=== PATIENT | female | born 1980 | race Hispanic/Latino ===

== ENCOUNTER 2022-05-23 19:17 | Emergency (ER) | payer MEDICAID ==
[~2022-05-23] VITALS: Ht 157.5 cm; Wt 73.5 kg
[2022-05-23] MEDS ORDERED: ONDANSETRON 4MG INJ IVP ONE (19:30)
[2022-05-23] MEDS ORDERED: KETOROLAC 30MG VIAL (30MG/ML) IVP ONE (19:30)
[2022-05-23] MEDS ORDERED: ONDANSETRON 4MG INJ ONE (19:35)
[2022-05-23] MEDS ORDERED: KETOROLAC 30MG VIAL (30MG/ML) ONE (19:36)
[2022-05-23 19:41] LABS: BASOPHILS % (AUTO) 0.4 % (0.0-5.0); EOSINOPHILS % (AUTO) 1.4 % (0.0-8.0); HEMATOCRIT 36.9 % (36-48); LYMPHOCYTES % (AUTO) 33.4 % (21.0-51.0); MEAN CORPUSCULAR HGB CONC 35.2 g/dL (32.0-36.0); MEAN CORPUSCULAR VOLUME 87.9 fL (79-99); MONOCYTES % (AUTO) 9.1 % (3.0-13.0); NEUTROPHILS % (AUTO) 55.4 % (40.0-77.0); PLATELET COUNT (AUTO) 349 K/uL (130-400); RED CELL DISTRIBUTION WIDTH 12.4 % (11.0-15.5)
[2022-05-23 19:45] LABS: APPEARANCE,URINE CLOUDY (CLEAR); BILIRUBIN,URINE NEGATIVE (NEGATIVE); COLOR,URINE YELLOW (YELLOW); GLUCOSE, URINE (UA) NEGATIVE (NEGATIVE); KETONES,URINE 5 mg/dL (NEGATIVE); LEUKOCYTE ESTERASE ,URINE NEGATIVE Leu/uL (NEGATIVE); NITRATE,URINE NEGATIVE (NEGATIVE); PROTEIN,URINE 30 mg/dL (NEGATIVE)
[2022-05-23 19:50] LABS: BACTERIA,URINE RARE /HPF (None Seen); MUCUS,URINE MOD LPF (None Seen); SQUAMOUS EPITHELIAL CELL,UR MOD /HPF (0-2); WBC,URINE 0-1 /HPF (0-1)
[2022-05-23 19:51] LABS: HCG,QUALITATIVE URINE NEGATIVE (NEGATIVE)
[2022-05-23 19:54] LABS: ALANINE AMINOTRANSFERASE 104 U/L (12-78); ALBUMIN 3.8 g/dL (3.5-5.0); ASPARTATE AMINOTRANSFERASE 48 U/L (10-37); CARBON DIOXIDE 32 mmol/L (21-32); CHLORIDE 100 mmol/L (101-111); CREATININE 0.8 mg/dL (0.5-1.5); GLOMERULAR FILTR. RATE CALC 83 mL/min (>60); GLUCOSE,RANDOM 101 mg/dL (70-105); POTASSIUM 3.6 mmol/L (3.5-5.1); SODIUM SERUM 138 mmol/L (136-145); TOTAL PROTEIN, SERUM 7.8 g/dL (6.0-8.3); UREA NITROGEN, BLOOD 15 mg/dL (7-18)
[2022-05-23 20:07] LABS: CRP QUANTITATIVE < 2.00 mg/L (0.00-9.0)
[2022-05-23] MEDS ORDERED: IBUP-2070 PO (20:53)
[2022-05-23] MEDS ORDERED: DOXY100C5 PO (20:53)
[2022-05-23] MEDS ORDERED: METR375C2 PO (20:53)
[2022-05-23] MEDS ORDERED: TRAM1TAB2 PO (20:53)
[2022-05-23] MEDS ORDERED: AZITHROMYCIN 250 MG TABLET PO ONE (21:00)
[2022-05-23] MEDS ORDERED: CEFTRIAXONE 1G VIAL IVP ONE (21:00)
[2022-05-23 21:07] VITALS: BP 128/72
== END 2022-05-23 21:31 | disposition home or self-care (01) ==
LOC: EDH 19:17
DX: N73.9 Female pelvic inflammatory disease, unspecified (principal); Z79.1 Long term (current) use of non-steroidal anti-inflammatories (NSAID)
CPT/HCPCS: 99284; 96374; 76856; 96375; 80053; 85025; 87797; 87486; 86140; 81001; 81025; 36415; J0696; J2405; J1885